=== PATIENT | female | born 1960 | race Caucasian/White ===

== ENCOUNTER 2023-04-10 14:28 | Emergency (ER) | payer MEDICARE, SELFPAY ==
[2023-04-10 14:30] VITALS: BP 158/87; PULSE 103; RESP 19; TEMP 37.1; O2SAT 100; BMI 23.3
--- NOTE | 2023-04-10 14:55 | ECG_ITS ---
APPROVED REPORT Exam: Resting ECG HR:85 bpm ECG Measurements Heart Rate 85 AXES [place] 191 P 42 QRSd 121 QRS -46 QT 389 T 51 QTc 432 Conclusion SINUS RHYTHM RIGHT BUNDLE BRANCH BLOCK [120+ ms QRS DURATION, UPRIGHT V1, 40+ ms S IN I/aVL/V4/V5/V6] LEFT ANTERIOR FASCICULAR BLOCK [QRS AXIS <= -45, QR IN I, RS IN II] VOLTAGE CRITERIA FOR LVH [MEETS CRITERIA IN ONE OF: R(aVL), S(V1), R(V5), R(V5/V6)+S(V1)] ABNORMAL ECG UNCONFIRMED REPORT Electronically signed by : Getachew Granados MD 04/13/2023 16:12:44
--- NOTE | 2023-04-10 14:57 | XR_ITS ---
FINAL REPORT CLINICAL HISTORY: multiple pre syncope Patient states cough and shortness of breath with exacerbation of bronchitis. CABG 2010 Cardiac stent 2016? FINDINGS: The heart size is normal. The mediastinum is within normal limits. There is no acute cardiopulmonary process. There is no pleural effusion. There is no pneumothorax. The bony thorax is intact. IMPRESSION: No acute cardiopulmonary process. Reviewed, Interpreted and Dictated by Twin Rodas III, MD Transcribed by Héctor Mejias Authenticated and [facility]
--- NOTE | 2023-04-10 14:57 | [facility].EDGENADL ---
Discharge Plan Disposition Patient Disposition: Home, Self-Care Prescriptions Prescriptions: New ondansetron 4 mg tablet,disintegrating 4 mg PO Q8H PRN (Reason: nausea and vomiting) 4 Days Qty: 12 0RF Referrals Follow up/Referrals: Nina Siblye DO [Primary Care Provider] - See instructions Activity Restrictions/Add. Instructions Additional Instructions/Restrictions: You were evaluated in the emergency department today. Please picking supervisor your prescription for nausea medication at the pharmacy and take as needed for symptoms. Hydrate at home is much as possible. Eat a bland diet until your symptoms have resolved. Follow-up with your primary care provider over the next 3 days. Return to the emergency department for any new or worsening symptoms. Clinical Impressions Clinical Impression: Nausea & vomiting, Enteritis, Syncope, vasovagal Instructions Patient Instructions: DI for Diarrhea and Traveler's Diarrhea -- Adult, DI for Nausea -- Adult Discharge ED Provider: Floridalma Garsia General Adult HPI <Jax Croft MD - Last Filed: 04/10/23 15:36> General Chief complaint: Nausea/Vomiting/Diarrhea Stated complaint: low blood, weak, vomiting Time Seen by Provider: 04/10/23 14:47 History of Present Illness HPI narrative: Patient is a 63-year-old female with past medical history of chronic iron deficiency who presents emergency department for evaluation of multiple complaints. Patient states that over the last couple of weeks when rising from a seated position she becomes lightheaded, no true syncope, no trauma. However she does have to quickly sit back down. She fears that her iron is low as this has caused her multiple episodes of the symptoms in the past. Over the last 48 hours she has developed vomiting and diarrhea. She has a daily inhaler that she uses however has not had increased use from baseline and has a slight cough which she attributes to quitting smoking. No chest pain. No other acute complaints at this time. Related Data Previous Rx's Medication Instructions Recorded ondansetron 4 mg disintegrating 4 mg PO Q8H PRN nausea and 04/10/23 tablet vomiting 4 days #12 tabs Allergies Allergy/AdvReac Type Severity Reaction Status Date / Time acetaminophen [From Percocet] Allergy Nausea Verified 04/10/23 15:36 ciprofloxacin Allergy Verified 04/10/23 15:22 codeine Allergy Nausea Verified 04/10/23 15:22 morphine Allergy Hives Verified 04/10/23 15:22 oxycodone [From Percocet] Allergy Nausea Verified 04/10/23 15:36 PFSH <Jax Croft MD - Last Filed: 04/10/23 15:36> PFSH Disclaimer: The information contained in this section may have been updated after the patient was seen, as this information can be updated by other users. Social History (Updated 04/10/23 @ 15:36 by Jax Croft MD) Smoking Status: Current every day smoker alcohol intake: never current occupational status: other Travel in the last 8 weeks: None <Jax Croft MD - Last Filed: 04/10/23 15:36> ROS Obtained: Yes Systems reviewed as appropriate & no additional complaints except as documented Physical Exam <Jax Croft MD - Last Filed: 04/10/23 15:36> General General appearance: alert and in no apparent distress Head Head exam: atraumatic and normocephalic Eye Eye exam: Present PERRL and EOMI ENT ENT exam: Present mucous membranes moist Neck Neck exam: Present normal inspection Chest Chest inspection: Present normal inspection and symmetric chest wall rise Respiratory Respiratory exam: Present normal lung sounds bilaterally; Absent respiratory distress Cardiovascular Cardiovascular exam: Present regular rate and normal rhythm Abdominal Exam Abdominal exam: Present soft; Absent tenderness Extremities Exam Extremities exam: Present normal inspection Neurological Exam Neurological exam: Present alert and CN II-XII intact; Absent motor sensory deficit Psychiatric Psychiatric exam: Present nor
[2023-04-10 15:01] VITALS: BP 100/76; PULSE 82; O2SAT 97
[2023-04-10 15:02] LABS: Basophils % 0.3 % (0.1-2.0); Eosinophils # 0.3 K/mm3 (0.0-0.4); Eosinophils % 2.3 % (0.1-12.0); Hematocrit 37.6 % (37.0-47.0); Hemoglobin 11.7 g/dL (12.2-16.2); Lymphocytes # 4.2 K/mm3 (0.7-4.5); Lymphocytes % 32.8 % (10-50); Mean Corpuscular HGB Conc 31.1 g/dL (31.8-35.4); Mean Corpuscular Volume 93.2 fl (81-99); Mean Platelet Volume 8.9 fl (7.4-10.4); Monocytes # 0.7 K/mm3 (0.1-1.0); Monocytes % 5.4 % (1.7-9.3); Neutrophils # 7.5 K/mm3 (1.8-7.8); Neutrophils % 59.1 % (37.0-80.0); Platelet Count 404 K/mm3 (142-424); Red Blood Count 4.04 M/mm3 (4.20-5.40); Red Cell Distribution Width 13.7 % (11.5-17.5); White Blood Count 12.7 K/mm3 (4.8-10.8)
[2023-04-10 15:04] LABS: Chloride 109 mmol/L (98-107)
[2023-04-10 15:05] LABS: Sodium 142 mmol/L (136-145)
[2023-04-10 15:07] LABS: Alanine Aminotransferase 23 U/L (12-78); Aspartate Amino Transferase 28 U/L (14-36); Blood Urea Nitrogen 23 mg/dl (7-17); Estimated Glomerular Filt Rate 38 ml/min (>60); GFR (African American) 46 ML/MIN (>60)
[2023-04-10 15:08] LABS: Albumin Level 4.2 g/dl (3.5-5.0); Albumin/Globulin Ratio 1.6 (1.1-1.8); Alkaline Phosphatase 132 U/L (38-126); Bilirubin,Total 0.4 mg/dl (0.2-1.3); Calcium 8.9 mg/dl (8.4-10.2); Carbon Dioxide 22 mmol/L (22.0-30.0); Globulin 2.6 g/dL (1.3-3.2); Glucose 103 mg/dl (74-100); Iron 61 ug/dL (37-170); Magnesium 1.8 mg/dl (1.6-2.3); Total Protein,Serum 6.8 g/dl (6.3-8.2)
[2023-04-10 15:28] LABS: Lipase 112 U/L (23-300)
[2023-04-10 15:31] VITALS: BP 148/68; PULSE 81; RESP 20; O2SAT 97
[2023-04-10 15:43] LABS: Ferritin 29.1 ng/ml (11.1-264)
[2023-04-10 16:00] VITALS: BP 125/68; PULSE 80; O2SAT 98
[2023-04-10 16:30] VITALS: BP 128/74; PULSE 77; O2SAT 99
[2023-04-10 17:28] VITALS: BP 127/73; PULSE 74; RESP 17; TEMP 37; O2SAT 99
== END 2023-04-10 17:28 | disposition home or self-care (01) ==
PROVIDERS: Emergency Medicine; Emergency Provider Emergency Medicine; PCP Student in an Organized Health Care Education/Training Program
DX: R55 Syncope and collapse (principal); K52.9 Noninfective gastroenteritis and colitis, unspecified; F17.200 Nicotine dependence, unspecified, uncomplicated; I45.2 Bifascicular block
CPT/HCPCS: 71045; 80053; 82728; 83540; 83690; 83735; 85025; 93005; 96361; 96374; 96375; 99285; J2405